=== PATIENT | female | born 1995 | race Caucasian/White ===

== ENCOUNTER 2024-05-18 02:54 | Emergency (ER) | payer BC ==
[~2024-05-18] VITALS: Ht 172.7 cm; Wt 64.5 kg
[2024-05-18 03:01] VITALS: TEMP 36.7; O2SAT 99
[2024-05-18] MEDS: DEXAMETHASONE 10 MG/ML VIAL PO ONE (03:57)
[2024-05-18 04:05] VITALS: BP 105/71; PULSE 57; RESP 20; O2SAT 99
== END 2024-05-18 04:08 | disposition home or self-care (01) ==
LOC: ER 03:37
DX: K14.6 Glossodynia (principal); F17.200 Nicotine dependence, unspecified, uncomplicated; J45.909 Unspecified asthma, uncomplicated; Z79.52 Long term (current) use of systemic steroids
CPT/HCPCS: 99283; J1100